=== PATIENT | male | born 1985 | race Caucasian/White ===

== ENCOUNTER 2018-10-01 20:20 | Emergency (ER) | payer BC ==
[2018-10-01] MEDS ORDERED: Norflex 60 MG/2 ML IM ONE (21:40)
[2018-10-01] MEDS ORDERED: TORAdol 30 mg Injection IM ONE (21:40)
[2018-10-01] MEDS ORDERED: Norflex 60 MG/2 ML ONE (21:43)
[2018-10-01] MEDS ORDERED: TORAdol 30 mg Injection ONE (21:43)
--- NOTE | 2018-10-01 21:46 | ERPHSYRPT ---
- History of Present Illness Time Seen by Provider: 10/01/18 21:34 Source: patient Exam Limitations: no limitations Patient Subjective Stated Complaint: pt states while bending over be suddenly began having stabbing pain in his rt lower back radiating to rt buttock Triage Nursing Assessment: pt alert and oriented, answers questions approp. respirations nonlabored with lungs cta. skin pink warm and dry. mild tenderness with palpation to rt lower back. Physician History: 32-year-old white male arrives with complaint of pain in his right mid low back symptoms since this afternoon when he was bending over pain is worse with movement. He denies any problems moving his extremities had no urinary symptoms. He does state he has had an injury in his back in the past. Past medical history includes patient denies. Past surgical history includes right hand surgery and right elbow surgery when he was 5 years old. Social history patient admits to using electronic vaping, and occasional alcohol use he denies illicit drug use. Timing/Duration: today Severity: moderate Modifying Factors: Improves With: movement Associated Symptoms: No nausea, No vomiting, No abdominal pain, No shortness of breath, No heartburn, No diaphoresis, No cough, No chills, No chest pain, No fever, No headaches, No loss of appetite, No malaise, No rash, No syncope, No seizure, No weakness Allergies/Adverse Reactions: No Known Drug Allergies Allergy (Verified 10/01/18 21:39) Hx Tetanus, Diphtheria Vaccination/Date Given: Yes Hx Influenza Vaccination/Date Given: No Hx Pneumococcal Vaccination/Date Given: No Immunizations Up to Date: Yes - Review of Systems Constitutional: No Fever, No Chills Eyes: No Symptoms Ears, Nose, & Throat: No Symptoms Respiratory: No Cough, No Dyspnea Cardiac: No Chest Pain, No Edema, No Syncope Abdominal/Gastrointestinal: No Abdominal Pain, No Nausea, No Vomiting, No Diarrhea Genitourinary Symptoms: No Dysuria Musculoskeletal: Back Pain (right low lumbosacral back pain), No Arthralgias, No Neck Pain, No Deformity, No Fall, No Injury, No Joint Redness, No Joint Pain , No Joint Swelling, No Myalgias, No Other Skin: No Rash Neurological: No Dizziness, No Focal Weakness, No Sensory Changes Psychological: No Symptoms Endocrine: No Symptoms All Other Systems: Reviewed and Negative - Past Medical History Pertinent Past Medical History: No - Past Surgical History Past Surgical History: Yes Musculoskeletal: Orthopedic Surgery Other Surgical History: right hand sx in 2015 - Social History Smoking Status: Former smoker How long have you smoked: 8 Exposure to second hand smoke: No Drug Use: none Patient Lives Alone: No Significant Family History: no pertinent family hx - Nursing Vital Signs Nursing Vital Signs: Initial Vital Signs Temperature 98.5 F 10/01/18 21:23 Pulse Rate 73 10/01/18 21:23 Respiratory Rate 18 10/01/18 21:23 Blood Pressure 133/79 10/01/18 21:23 O2 Sat by Pulse Oximetry 98 10/01/18 21:23 Pain Scale Pain Intensity [Right Lower 9 Back] Pain Intensity 9 - Physical Exam General Appearance: mild distress, alert Eye Exam: PERRL/EOMI, eyes nml inspection Ears, Nose, Throat Exam: normal ENT inspection, TMs normal, pharynx normal, moist mucous membranes Neck Exam: normal inspection, non-tender, supple, full range of motion Respiratory Exam: normal breath sounds, lungs clear, No respiratory distress Cardiovascular Exam: regular rate/rhythm, normal heart sounds, normal peripheral pulses, capillary refill <2 sec Gastrointestinal/Abdomen Exam: soft, normal bowel sounds, No tenderness, No mass Back Exam: other (back is tender with palpation and movement right low lumbar and sacral region midline.) Extremity Exam: normal inspection, normal range of motion, pelvis stable Neurologic Exam: alert, oriented x 3, cooperative, normal mood/affect, nml cerebellar function, nml station & gait, sensation nml, No motor deficits Skin Exam: normal color, warm, dry, No rash SpO2 Interpretation: normal (98%) SpO2: 98 - Course Nursing assessment & vital signs reviewed: Yes Ordered Tests: Medication Summary Discontinued Medications Generic Name Dose Route Start Last Admin Trade Name Freq PRN Reason Stop Dose Admin Ketorolac Tromethamine 60 mg 10/01/18 21:40 10/01/18 21:53 Toradol 30 Mg Injection IM 10/01/18 21:41 60 mg STAT ONE Administration Ketorolac Tromethamine Confirm 10/01/18 21:43 Toradol 30 Mg Injection Administered 10/01/18 21:44 Dose 60 mg .ROUTE .STK-MED ONE Orphenadrine Citrate 60 mg 10/01/18 21:40 10/01/18 21:53 Norflex 60 Mg/2 Ml IM 10/01/18 21:41 60 mg STAT ONE Administration Orphenadrine Citrate Confirm 10/01/18 21:43 Norflex 60 Mg/2 Ml Administered 10/01/18 21:44 Dose 60 mg .ROUTE .[employer]-MED ONE - Progress Progress: improved Progress Note: 10/01/18 21:44 32-year-old white male arrives with complaint of right low lumbar sacral pain worse with movement began after bending over at home today. He is point tender in the low lumbosacral region almost midline on the right with palpation and movement. He has full range of motion to all extremities sensation intact to all extremities. He has no urinary symptoms. Will go ahead and give patient Toradol 60 mg IM and Norflex 60 mg IM. Will expect a work slip. Anticipate Flexeril and Naprosyn At home, Impression: Back pain, lumbar strain. 10/01/18 22:25 Patient feeling better but not completely pain-free after Naprosyn and Flexeril, Will plan to discharge patient will write for home prescriptions of Naprosyn and Flexeril, off work tomorrow, Follow-up with family doctor if symptoms are worse no better in 48-72 hours or persist longer than one week. Return for acute distress or for severe symptoms. - Departure Time of Disposition: 21:46 Departure Disposition: Home Clinical Impression: Back pain Qualifiers: Back pain location: low back pain Chronicity: acute Back pain laterality: right Sciatica presence: without sciatica Qualified Code(s): M54.5 - Low back pain Lumbar strain Qualifiers: Encounter type: initial encounter Qualified Code(s): S39.012A - Strain of muscle, fascia and tendon of lower back, initial encounter Condition: Fair Critical Care Time: No Referrals: JASMIN CRABTREE [Primary Care Provider] - Instructions: Low Back Pain (DC) Additional Instructions: Return home. Naprosyn 500 mg orally twice a day with food as needed for pain #20. Flexeril 10 mg orally 3 times a day for 5 days #15. Cold packs to area 24-48 hours. Follow-up with your family doctor if symptoms are worse, no better in 48-72 hours, or persist longer than one week. Return for acute distress or for severe symptoms. Prescriptions: Cyclobenzaprine HCl 10 mg [Cyclobenzaprine 10 MG] 10 mg PO TID #15 tablet Naproxen 500 mg [Naprosyn 500 MG] 500 mg PO BIDPRN PRN #20 tablet PRN Reason: Pain
[2018-10-01 22:54] VITALS: BP 100/71; PULSE 86; O2SAT 97
== END 2018-10-01 22:52 | disposition home or self-care (01) ==
LOC: ED 20:20
DX: M54.5 Low back pain (principal); S39.012A Strain of muscle, fascia and tendon of lower back, initial encounter; X50.0XXA Overexertion from strenuous movement or load, initial encounter
CPT/HCPCS: 96372; 99284; J1885; J2360

== ENCOUNTER 2023-01-25 09:20 | Emergency (ER) | payer BC ==
[2023-01-25 09:42] VITALS: O2SAT 98
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
--- NOTE | 2023-01-25 11:09 | XRAY ---
Indication: Low back pain. Multiple contiguous axial images obtained through the lumbar spine. Sagittal and coronal reformatted images obtained. Comparison: September 09, 2015. Axial images again negative for acute fracture, suspicious bony lesions, or spinal canal stenosis. L5-S1 level demonstrates grossly stable minimal broad-based right paracentral/lateral disc bulge again producing right foraminal stenosis. Facets are symmetric. Sagittal and coronal reformatted images again demonstrates normal alignment. Grossly stable minimal T12-L1 anterior wedging deformities again favoring normal transitional segments. No acute compression fracture or subluxation. Disc spaces maintained. Visualized noncontrasted soft tissues unremarkable. Impression: Stable L5-S1 right paracentral/lateral broad-based disc bulge with right foraminal stenosis. Remaining CT lumbar spine is again negative.
[2023-01-25 11:37] VITALS: BP 126/68; PULSE 81
== END 2023-01-25 11:37 | disposition home or self-care (01) ==
LOC: ED 09:20
DX: M51.37 Other intervertebral disc degeneration, lumbosacral region (principal); M54.50 Low back pain, unspecified; Z79.891 Long term (current) use of opiate analgesic; Z79.899 Other long term (current) drug therapy
CPT/HCPCS: 72131; 99282